=== PATIENT | female | born 1960 | race Two or more races ===

== ENCOUNTER 2017-10-30 09:24 | Outpatient (CLI) | payer OTHER | END 2017-10-30 10:40 | disposition home or self-care (01) | LOC: RAD 501 09:24 | DX: M54.5 Low back pain (principal); M54.16 Radiculopathy, lumbar region ==

== ENCOUNTER → 2017-11-27 07:04 | Outpatient (CLI) | payer OTHER ==
[~2017-11-27 07:04] MED LIST: APRESOLINE 10MG10 MG PO; AVAPRO300 MG PO; CARDURA8 MG PO; CATAFLAN PO; HYDROCHLOROTH12.5 M1 PO; NORVASC10 MG PO; TOPROL XL200 MG PO; ZANAFLEX4 M1 PO
== END | disposition home or self-care (01) ==
LOC: RAD 07:04
DX: M48.06 Spinal stenosis, lumbar region (principal)

== ENCOUNTER 2017-12-07 05:55 | Day surgery (SDC) | payer OTHER ==
[~2017-12-07] VITALS: Ht 149.9 cm; Wt 79.4 kg
== END 2017-12-07 20:00 | disposition home or self-care (01) ==
LOC: CIR.AMB 05:55
DX: M51.27 Other intervertebral disc displacement, lumbosacral region (principal); M54.30 Sciatica, unspecified side

== ENCOUNTER 2019-08-01 08:22 | Outpatient (CLI) | payer OTHER | END 2019-08-01 08:28 | disposition home or self-care (01) | LOC: RAD 08:22 | DX: M15.8 Other polyosteoarthritis (principal); M54.6 Pain in thoracic spine; M79.642 Pain in left hand; M79.641 Pain in right hand ==

== ENCOUNTER 2019-10-29 09:04 | Outpatient (CLI) | payer OTHER | END 2019-10-29 09:07 | disposition home or self-care (01) | LOC: NUCLEAR 09:04 | PROVIDERS: ATTEND Internal Medicine Rheumatology | DX: M85.88 Other specified disorders of bone density and structure, other site (principal); M81.0 Age-related osteoporosis without current pathological fracture ==

== ENCOUNTER → 2019-10-29 | Outpatient (CLI) | payer OTHER | END | disposition home or self-care (01) | LOC: MRI 07:22 | PROVIDERS: ATTEND Physical Medicine & Rehabilitation | DX: M54.2 Cervicalgia (principal); M54.5 Low back pain; M54.16 Radiculopathy, lumbar region | CPT/HCPCS: 72148 ==

== ENCOUNTER 2019-12-26 07:38 | Outpatient (CLI) | payer OTHER | END 2019-12-26 07:48 | disposition home or self-care (01) | LOC: MRI 07:38 | PROVIDERS: ATTEND Physical Medicine & Rehabilitation | DX: M54.2 Cervicalgia (principal) | CPT/HCPCS: 72141 ==

== ENCOUNTER 2020-03-27 08:05 | Outpatient (CLI) | payer OTHER | END 2020-03-27 08:10 | disposition home or self-care (01) | LOC: NUCLEAR 08:05 | PROVIDERS: ATTEND Internal Medicine Rheumatology | DX: M15.8 Other polyosteoarthritis (principal) | CPT/HCPCS: 78315; A9503 ==

== ENCOUNTER 2020-10-07 07:38 | Outpatient (CLI) | payer OTHER | END 2020-10-07 07:47 | disposition home or self-care (01) | LOC: NUCLEAR 07:38 | PROVIDERS: ATTEND Physical Medicine & Rehabilitation | DX: I73.9 Peripheral vascular disease, unspecified (principal); I87.2 Venous insufficiency (chronic) (peripheral) ==

== ENCOUNTER → 2020-10-08 | Outpatient (CLI) | payer OTHER | END | disposition home or self-care (01) | LOC: NUCLEAR 07:37 | PROVIDERS: ATTEND Physical Medicine & Rehabilitation | DX: I87.2 Venous insufficiency (chronic) (peripheral) (principal); I73.9 Peripheral vascular disease, unspecified ==

== ENCOUNTER 2021-01-07 07:38 | Outpatient (CLI) | payer OTHER | END 2021-01-07 07:43 | disposition home or self-care (01) | LOC: RAD 07:38 | PROVIDERS: ATTEND Physical Medicine & Rehabilitation | DX: M16.11 Unilateral primary osteoarthritis, right hip (principal); M16.12 Unilateral primary osteoarthritis, left hip ==

== ENCOUNTER 2021-04-30 09:10 | Outpatient (CLI) | payer OTHER | END 2021-04-30 09:20 | disposition home or self-care (01) | LOC: RAD 09:10 | PROVIDERS: ATTEND Internal Medicine Pulmonary Disease | DX: J31.0 Chronic rhinitis (principal); J45.30 Mild persistent asthma, uncomplicated ==

== ENCOUNTER 2021-07-02 08:46 | Outpatient (CLI) | payer OTHER | END 2021-07-02 08:57 | disposition home or self-care (01) | LOC: RAD 08:46 | PROVIDERS: ATTEND Physical Medicine & Rehabilitation | DX: M77.11 Lateral epicondylitis, right elbow (principal) ==

== ENCOUNTER 2022-02-23 09:37 | Outpatient (CLI) | payer OTHER | END 2022-02-23 09:46 | disposition home or self-care (01) | LOC: SONOGRAMA 09:37 | PROVIDERS: ATTEND Physical Medicine & Rehabilitation | DX: M75.21 Bicipital tendinitis, right shoulder (principal) ==

== ENCOUNTER 2022-04-22 09:09 | Outpatient (CLI) | payer OTHER | END 2022-04-22 09:31 | disposition home or self-care (01) | LOC: MRI 09:09 → TOM 09:09 → MRI 09:31 | PROVIDERS: ATTEND Physical Medicine & Rehabilitation | DX: M54.12 Radiculopathy, cervical region (principal); M54.2 Cervicalgia | CPT/HCPCS: 72141 ==

== ENCOUNTER 2022-06-14 11:52 | Outpatient (CLI) | payer OTHER | END 2022-06-14 12:03 | disposition home or self-care (01) | LOC: MRI 11:52 | PROVIDERS: ATTEND Physical Medicine & Rehabilitation | DX: M48.06 Spinal stenosis, lumbar region (principal); M54.50 Low back pain, unspecified; M54.16 Radiculopathy, lumbar region | CPT/HCPCS: 72148 ==

== ENCOUNTER 2022-09-20 09:37 | Outpatient (CLI) | payer OTHER | END 2022-09-20 10:02 | disposition home or self-care (01) | LOC: MAMO-SONO 09:37 | PROVIDERS: ATTEND Physical Medicine & Rehabilitation | DX: M25.561 Pain in right knee (principal); M16.11 Unilateral primary osteoarthritis, right hip; Z12.31 Encounter for screening mammogram for malignant neoplasm of breast; J32.8 Other chronic sinusitis; R05.3 Chronic cough ==

== ENCOUNTER 2024-05-01 10:13 | Outpatient (CLI) | payer OTHER | END 2024-05-01 10:31 | disposition home or self-care (01) | LOC: MRI 10:13 | PROVIDERS: ATTEND Physical Medicine & Rehabilitation | DX: M54.2 Cervicalgia (principal); M54.59 Other low back pain | CPT/HCPCS: 72141 ==

== ENCOUNTER 2024-08-13 09:47 | Outpatient (CLI) | payer OTHER | END 2024-08-13 09:57 | disposition home or self-care (01) | LOC: SONOGRAMA 09:47 | PROVIDERS: ATTEND Physical Medicine & Rehabilitation | DX: M25.511 Pain in right shoulder (principal) ==

== ENCOUNTER 2025-01-06 09:35 | Outpatient (CLI) | payer OTHER | END 2025-01-06 09:43 | disposition home or self-care (01) | LOC: MRI 09:35 | PROVIDERS: ATTEND Physical Medicine & Rehabilitation | DX: M25.511 Pain in right shoulder (principal) | CPT/HCPCS: 73721 ==

== ENCOUNTER 2025-02-06 06:00 | Day surgery (SDC) | payer OTHER ==
[2025-01-30 08:50] LABS: BASO % 0.4 % (0.1-1.2); EOS # 0.26 (0.04-0.54); EOS % 3.6 % (0.7-7.0); LYMPH # 2.17 (1.18-3.74); LYMPH % 30.0 % (19.3-53.1); MEAN PLATELET VOLUME 12.90 fl (9.4-12.4); MONO # 0.59 (0.24-0.82); MONO % 8.2 % (4.7-12.5); NEUT # 4.17 (1.56-6.13); NEUT % 57.7 % (34.0-71.1); RED CELL DISTRIBUTION WIDTH 13.2 % (11.6-14.4)
[2025-01-30 08:54] LABS: URINE APPEARANCE Clear; URINE BILIRRUBIN Negative (NEGATIVE); URINE BLOOD Negative; URINE COLOR Yellow; URINE GLUCOSE Negative (NEGATIVE); URINE KETONE Negative (NEGATIVE); URINE LEUKOCYTE Negative; URINE NITRATE Negative; URINE PROTEIN Negative (NEGATIVE); URINE UROBILINOGEN 0.2 E.U./dl
[2025-01-30 08:58] LABS: URINE BACTERIA 4.8 uL (0.0-1933); URINE EPITHELIAL CELLS 8.5 uL (0.0-38.8); URINE RBC 2.4 uL (0.0-20.8); URINE WBC 3.9 uL (0.0-23.2)
[2025-01-30 09:09] LABS: INR 0.98
[2025-01-30 09:10] LABS: URINE CAST 1.02 uL (0.0-1.40)
[2025-01-30 09:43] LABS: ALT/SGPT 24.0 U/L (12-78); AST/SGOT 19.0 U/L (15-37); BILIRUBIN TOTAL 0.32 mg/dL (0.3-1.2); BUN CREA RATIO 32.0 (7.0-25.0); CREATININE SERUM 0.59 mg/dL (0.55-1.02); GFR 102.29; GLOBULINA 3.5 G/DL (2.4-3.5); GLUCOSE FASTING 88.0 mg/dL (65-100); OSMOLALITY SERUM 287.0 MOSM/KG (275-295)
[2025-01-30 10:36] VITALS: BP 116/74
[~2025-02-06] VITALS: Ht 149.9 cm; Wt 62.6 kg
[~2025-02-06 06:00] MED LIST changes: +LIPITOR40 M1
[2025-02-06] MEDS ORDERED: CEFAZOLIN SODIUM 1,000 MG VIAL ONE (06:36)
[2025-02-06] MEDS ORDERED: LIDOCAINE HCL 1%/EPINEPHRINE 20ML VIAL IJ ONE (07:21)
[2025-02-06] MEDS ORDERED: KETOROLAC TROMETHAMINE 30 MG VIAL ONE (07:21)
[2025-02-06] MEDS ORDERED: BUPIVACAINE HCL/MPF 0.5% 30ML VIAL ONE (07:21)
[2025-02-06] MEDS ORDERED: KETOROLAC TROMETHAMINE 30 MG VIAL IM ONE (08:15)
[2025-02-06] MEDS ORDERED: BUPIVACAINE HCL 30 ML VIAL IJ ONE (08:15)
[2025-02-06] MEDS ORDERED: KETOROLAC TROMETHAMINE 30 MG VIAL IV ONE (08:15)
[2025-02-06] MEDS ORDERED: CEFAZOLIN SODIUM 1,000 MG in 0.9 % SODIUM CHLORIDE 50 ML IV ONE (08:15)
[2025-02-06] MEDS ORDERED: LIDOCAINE HCL 1%/EPINEPHRINE 10 ML VIAL IJ ONE (08:15)
[2025-02-06] MEDS ORDERED: SUGAMMADEX SODIUM 200 MG/2 ML VIAL IV ONE ×2 (08:46→09:00)
[2025-02-06] MEDS ORDERED: ENALAPRILAT DIHYDRATE 1.25 MG/ML VIAL IV ONE (10:40)
== END 2025-02-06 12:30 | disposition home or self-care (01) ==
LOC: CIR.AMB 06:00
PROVIDERS: ATTEND Orthopaedic Surgery
DX: M75.21 Bicipital tendinitis, right shoulder (principal); M19.011 Primary osteoarthritis, right shoulder; M75.121 Complete rotator cuff tear or rupture of right shoulder, not specified as traumatic; M24.111 Other articular cartilage disorders, right shoulder